=== PATIENT | female | born 1970 | race Hispanic/Latino ===

== ENCOUNTER 2023-05-17 15:20 | Emergency (ER) | payer SELFPAY ==
[2023-05-17] VITALS (10 sets, daily range): BP systolic 102–146; BP diastolic 55–90
[~2023-05-17] VITALS: Ht 142.2 cm; Wt 59.3 kg
[~2023-05-17 15:20] MED LIST: NO HOME MEDS
[2023-05-17 15:58] LABS: HEMATOCRIT 41.8 % (37.0-47.0); HEMOGLOBIN 13.7 g/dl (12.0-16.0); MEAN CELL VOLUME 79.6 fL CALC (80.0-100.0); MEAN CORPUSCULAR HGB 26.1 pG CALC (26.0-32.0); MEAN CORPUSCULAR HGB CONC 32.8 g/dL CAL (32.0-36.0); RED BLOOD COUNT 5.25 mill/uL (4.20-5.60)
[2023-05-17 16:00] LABS: URINE BILIRUBIN - DIPSTICK Negative (NEGATIVE); URINE BLOOD DIPSTICK Trace-intact (NEGATIVE); URINE GLUCOSE - DIPSTICK Negative (NEGATIVE); URINE KETONE Negative (NEGATIVE); URINE LEUK ESTERASE Negative (NEGATIVE); URINE NITRITE - DIPSTICK Negative (Negative); URINE PH 6.5 (4.5-8.0); URINE PROTEIN - DIPSTICK Trace mg/dL (NEG-TRACE); URINE SPECIFIC GRAVITY 1.025; URINE UROBILINOGEN - DIPSTICK 0.2 E.U./dL (0.2)
[2023-05-17 16:01] LABS: URINE COLOR Yellow
[2023-05-17 16:11] LABS: ALBUMIN 4.6 g/dL (3.2-5.0); ALKALINE PHOSPHATASE 58 u/l (38-126); ANION GAP 15 (6-22 (CALC)); BUN 17 mg/dL (7-17); BUN/CREATININE RATIO 25 (12-20 (CALC)); CARBON DIOXIDE 24 mmol/l (22-30); CHLORIDE 105 mmol/l (95-108); CREATININE 0.7 mg/dL (0.5-1.0); GFR FOR AFR.AMER. > 60 ML/MIN (>=60 (CALC)); GFR OTHER RACES > 60 ML/MIN (>=60 (CALC)); LIPASE 54 u/l (23-300); POTASSIUM 3.3 mmol/l (3.5-5.1); SGOT/AST 35 u/l (14-36); SODIUM 140 mmol/l (137-146); TOTAL PROTEIN 8.3 g/dL (6.3-8.2)
[2023-05-17 16:18] LABS: BILIRUBIN, TOTAL 0.3 mg/dL (0.02-1.3)
== END 2023-05-17 19:01 | disposition home or self-care (01) | DRG 312 ==
LOC: ED 15:20
PROVIDERS: Emergency Medicine
DX: R55 Syncope and collapse (principal); R10.9 Unspecified abdominal pain; Z86.011 Personal history of benign neoplasm of the brain